=== PATIENT | male | born 1995 | race American Indian/Alaskan Native ===

== ENCOUNTER 2020-09-21 00:59 | Emergency (ER) | payer OTHER ==
[2020-09-21 01:31] VITALS: BP 122/85
[2020-09-21] MEDS ORDERED: ACETAMINOPHEN 500 MG TAB PO ONE (05:29)
[2020-09-21] MEDS ORDERED: IBUPROFEN 600 MG TAB PO ONE (05:29)
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
== END 2020-09-21 06:33 | disposition home or self-care (01) ==
LOC: ED 00:59
DX: S43.402A Unspecified sprain of left shoulder joint, initial encounter (principal); S83.92XA Sprain of unspecified site of left knee, initial encounter; F17.200 Nicotine dependence, unspecified, uncomplicated; Z88.2 Allergy status to sulfonamides; Z91.09 Other allergy status, other than to drugs and biological substances; V89.2XXA Person injured in unspecified motor-vehicle accident, traffic, initial encounter; Y93.89 Activity, other specified; Y92.89 Other specified places as the place of occurrence of the external cause; Y99.8 Other external cause status
CPT/HCPCS: 99283